=== PATIENT | female | born 1995 | race Caucasian/White ===

== ENCOUNTER 2017-12-25 07:49 | Observation (INO) | payer BC ==
[~2017-12-25] VITALS: Ht 167.6 cm; Wt 96.1 kg
[~2017-12-25 07:49] MED LIST: CRUTCH4 USE; LEVSOD100 PO
[2017-12-25 08:49] LABS: BASOPHILS ABSOLUTE AUTO 0.05 K/mm3 (0.00-0.23); BASOPHILS PERCENT AUTO 0 % (0-2); EOSINOPHILS ABSOLUTE AUTO 0.05 K/mm3 (0.00-0.68); EOSINOPHILS PERCENT AUTO 0 % (0-6); Hematocrit 33.5 % (33.0-51.0); Hemoglobin 11.6 g/dL (11.5-16.0); IMMATURE GRAN ABSOLUTE AUTO 0.07 K/mm3 (0.00-0.10); IMMATURE GRAN PERCENT AUTO 1 % (0-1); LYMPHOCYTES ABSOLUTE AUTO 1.11 K/mm3 (0.84-5.20); LYMPHOCYTES PERCENT AUTO 8 % (21-46); MONOCYTES ABSOLUTE AUTO 0.82 K/mm3 (0.16-1.47); MONOCYTES PERCENT AUTO 6 % (4-13); Mean Corpuscular HGB 29.6 pg (26.0-34.0); Mean Corpuscular HGB Conc 34.6 g/dL (31.5-36.5); Mean Corpuscular Volume 86 fL (80-100); Mean Platelet Volume 10.9 fL (9.1-12.4); NEUTROPHILS ABSOLUTE AUTO 12.23 K/mm3 (1.96-9.15); NEUTROPHILS PERCENT AUTO 86 % (41-73); Platelet Count 208 K/mm3 (150-400); RDW Coefficient Variation 12.3 % (11.7-14.2); RDW Standard Deviation 37.9 fL (35.1-46.3); Red Blood Cell Count 3.92 M/mm3 (3.80-5.20); White Blood Cell Count 14.33 K/mm3 (4.00-11.30)
[2017-12-25 09:09] LABS: Alanine Aminotransfer (ALT/SGP 22 U/L (12-78); Albumin, Blood 2.8 g/dL (3.4-5.0); Albumin/Globulin Ratio 0.7 (0.8-1.8); Alk Phos 82 U/L (50-136); Anion Gap 11 mmol/L (6-16); Aspartate Aminotrans (AST/SGOT 19 U/L (12-37); Bilirubin, Total 0.2 mg/dL (0.1-1.0); Blood Urea Nitrogen 9 mg/dL (8-24); Bun/Creatinine Ratio 10.4 (12.0-20.0); CO2, Blood 22 mmol/L (21-32); Calcium, Blood 8.4 mg/dL (8.5-10.1); Chloride, Blood 103 mmol/L (98-108); Creatinine, Blood 0.87 mg/dL (0.40-1.00); Globulin, Blood 4.1 g/dL (2.2-4.0); Glomerular Filtration Rate >60 (60-); Glucose, Blood 83 mg/dL (70-99); Potassium, Blood 3.9 mmol/L (3.5-5.5); Sodium, Blood 136 mmol/L (136-145); Total Protein, Blood 6.9 g/dL (6.4-8.2)
== END 2017-12-26 10:00 | disposition home or self-care (01) ==
LOC: OBS 07:49 → BC 07:49 → OBS 13:23 → BC 13:24
PROVIDERS: Nurse Practitioner Obstetrics & Gynecology
DX: O26.832 Pregnancy related renal disease, second trimester (principal); N23 Unspecified renal colic; O99.282 Endocrine, nutritional and metabolic diseases complicating pregnancy, second trimester; E03.9 Hypothyroidism, unspecified; Z90.89 Acquired absence of other organs; Z98.890 Other specified postprocedural states; Z88.2 Allergy status to sulfonamides; Z3A.27 27 weeks gestation of pregnancy
CPT/HCPCS: 76770; 80053; 81003; 85025; 96361; 96365; 96366; 96375; G0378; J0696; J2405; J3010; J7120

== ENCOUNTER 2018-03-06 07:12 | Inpatient (IN) | payer BC ==
[~2018-03-06] VITALS: Ht 167.6 cm; Wt 203.0 kg
[2018-03-06 07:39] LABS: BASOPHILS ABSOLUTE AUTO 0.04 K/mm3 (0.00-0.23); BASOPHILS PERCENT AUTO 0 % (0-2); EOSINOPHILS ABSOLUTE AUTO 0.09 K/mm3 (0.00-0.68); EOSINOPHILS PERCENT AUTO 1 % (0-6); Hematocrit 33.1 % (33.0-51.0); Hemoglobin 11.3 g/dL (11.5-16.0); IMMATURE GRAN ABSOLUTE AUTO 0.08 K/mm3 (0.00-0.10); IMMATURE GRAN PERCENT AUTO 1 % (0-1); LYMPHOCYTES ABSOLUTE AUTO 1.63 K/mm3 (0.84-5.20); LYMPHOCYTES PERCENT AUTO 17 % (21-46); MONOCYTES ABSOLUTE AUTO 0.61 K/mm3 (0.16-1.47); MONOCYTES PERCENT AUTO 6 % (4-13); Mean Corpuscular HGB 29.5 pg (26.0-34.0); Mean Corpuscular HGB Conc 34.1 g/dL (31.5-36.5); Mean Corpuscular Volume 86 fL (80-100); Mean Platelet Volume 11.9 fL (9.1-12.4); NEUTROPHILS ABSOLUTE AUTO 7.19 K/mm3 (1.96-9.15); NEUTROPHILS PERCENT AUTO 75 % (41-73); Platelet Count 224 K/mm3 (150-400); RDW Coefficient Variation 12.9 % (11.7-14.2); RDW Standard Deviation 38.5 fL (35.1-46.3); Red Blood Cell Count 3.83 M/mm3 (3.80-5.20); White Blood Cell Count 9.64 K/mm3 (4.00-11.30)
[2018-03-06] MEDS ORDERED: LABE100 PO (07:47)
[2018-03-09 06:31] LABS: BASOPHILS ABSOLUTE AUTO 0.03 K/mm3 (0.00-0.23); BASOPHILS PERCENT AUTO 0 % (0-2); EOSINOPHILS ABSOLUTE AUTO 0.07 K/mm3 (0.00-0.68); EOSINOPHILS PERCENT AUTO 1 % (0-6); Hematocrit 31.6 % (33.0-51.0); Hemoglobin 10.8 g/dL (11.5-16.0); IMMATURE GRAN ABSOLUTE AUTO 0.08 K/mm3 (0.00-0.10); IMMATURE GRAN PERCENT AUTO 1 % (0-1); LYMPHOCYTES ABSOLUTE AUTO 1.37 K/mm3 (0.84-5.20); LYMPHOCYTES PERCENT AUTO 14 % (21-46); MONOCYTES ABSOLUTE AUTO 0.69 K/mm3 (0.16-1.47); MONOCYTES PERCENT AUTO 7 % (4-13); Mean Corpuscular HGB 29.7 pg (26.0-34.0); Mean Corpuscular HGB Conc 34.2 g/dL (31.5-36.5); Mean Corpuscular Volume 87 fL (80-100); Mean Platelet Volume 11.9 fL (9.1-12.4); NEUTROPHILS ABSOLUTE AUTO 7.46 K/mm3 (1.96-9.15); NEUTROPHILS PERCENT AUTO 77 % (41-73); NRBC ABSOLUTE 0.02 K/mm3 (0.00-0.02); NRBC Auto 0.2 /100 WBC (0.0-0.2); Platelet Count 183 K/mm3 (150-400); RDW Standard Deviation 39.7 fL (35.1-46.3); Red Blood Cell Count 3.64 M/mm3 (3.80-5.20)
[2018-03-09 06:58] LABS: Alanine Aminotransfer (ALT/SGP 11 U/L (12-78); Albumin/Globulin Ratio 0.5 (0.8-1.8); Alk Phos 145 U/L (50-136); Anion Gap 9 mmol/L (6-16); Aspartate Aminotrans (AST/SGOT 15 U/L (12-37); Bilirubin, Total 0.3 mg/dL (0.1-1.0); Blood Urea Nitrogen 9 mg/dL (8-24); CO2, Blood 22 mmol/L (21-32); Calcium, Blood 8.8 mg/dL (8.5-10.1); Chloride, Blood 109 mmol/L (98-108); Creatinine, Blood 0.69 mg/dL (0.40-1.00); Globulin, Blood 3.9 g/dL (2.2-4.0); Glomerular Filtration Rate >60 (60-); Glucose, Blood 94 mg/dL (70-99); Potassium, Blood 3.5 mmol/L (3.5-5.5); Sodium, Blood 140 mmol/L (136-145); Total Protein, Blood 5.9 g/dL (6.4-8.2)
[2018-03-09 21:49] LABS: PCO2 Cord - Arterial 52.4 mmHg (40-50); pH Cord - Arterial 7.28 (7.28-7.35)
[2018-03-09 21:50] LABS: PO2 Cord - Arterial < 12 mmHg (16-20)
[2018-03-09 21:51] LABS: PCO2 Cord - Venous 47.7 mmHg (40-50); PO2 Cord - Venous 17.9 mmHg (28-32); pH Umbilical Cord - Venous 7.32 (7.26-7.35)
[2018-03-10 05:35] LABS: Hemoglobin 8.8 g/dL (11.5-16.0); Mean Corpuscular HGB 29.6 pg (26.0-34.0); Mean Corpuscular HGB Conc 33.8 g/dL (31.5-36.5); Mean Corpuscular Volume 88 fL (80-100); Mean Platelet Volume 12.2 fL (9.1-12.4); Platelet Count 148 K/mm3 (150-400); RDW Coefficient Variation 13.2 % (11.7-14.2); RDW Standard Deviation 40.3 fL (35.1-46.3); Red Blood Cell Count 2.97 M/mm3 (3.80-5.20); White Blood Cell Count 10.82 K/mm3 (4.00-11.30)
== END 2018-03-11 18:05 | disposition home or self-care (01) | DRG 766 ==
LOC: BC 07:12
PROVIDERS: Nurse Practitioner Obstetrics & Gynecology; Obstetrics & Gynecology
PROC: 3E0P7VZ Introduction of Hormone into Female Reproductive, Via Natural or Artificial Opening (ICD-10-PCS; 2018-03-07)
PROC: 10907ZC Drainage of Amniotic Fluid, Therapeutic from Products of Conception, Via Natural or Artificial Opening (ICD-10-PCS; 2018-03-09)
PROC: 10D00Z1 Extraction of Products of Conception, Low, Open Approach (ICD-10-PCS; principal; 2018-03-09 20:30)
DX: O14.04 Mild to moderate pre-eclampsia, complicating childbirth (principal); O61.0 Failed medical induction of labor; O62.1 Secondary uterine inertia; O69.81X0 Labor and delivery complicated by cord around neck, without compression, not applicable or unspecified; O34.13 Maternal care for benign tumor of corpus uteri, third trimester; D25.2 Subserosal leiomyoma of uterus; O99.824 Streptococcus B carrier state complicating childbirth; Z37.0 Single live birth; Z3A.37 37 weeks gestation of pregnancy; Z79.899 Other long term (current) drug therapy
CPT/HCPCS: 36415; 51702; 59025; 80053; 82803; 85025; 85027; 86850; 86900; 86901; J0290; J0690; J1885; J2590; J2765; J3010; J7120

== ENCOUNTER 2020-07-09 08:30 | Inpatient (IN) | payer BC, OTHER ==
[~2020-07-09] VITALS: Ht 167.6 cm; Wt 110.7 kg
[~2020-07-09 08:30] MED LIST changes: +LABE100 PO
--- NOTE | 2020-07-09 10:59 | NUR ---
TAKED TO CNM ON PHONE, PT CLEARED FROM SUICIDE INTERVENTION
--- NOTE | 2020-07-09 12:30 | NUR ---
C/S WILL BE ABOUT 1400 PER [facility]W FROM [facility]
[2020-07-09 12:37] LABS: BASOPHILS ABSOLUTE AUTO 0.03 K/mm3 (0.00-0.23); BASOPHILS PERCENT AUTO 0 % (0-2); EOSINOPHILS ABSOLUTE AUTO 0.04 K/mm3 (0.00-0.68); EOSINOPHILS PERCENT AUTO 1 % (0-6); Hematocrit 33.5 % (33.0-51.0); Hemoglobin 10.4 g/dL (11.5-16.0); IMMATURE GRAN ABSOLUTE AUTO 0.05 K/mm3 (0.00-0.10); IMMATURE GRAN PERCENT AUTO 1 % (0-1); LYMPHOCYTES ABSOLUTE AUTO 1.36 K/mm3 (0.84-5.20); LYMPHOCYTES PERCENT AUTO 17 % (21-46); MONOCYTES ABSOLUTE AUTO 0.57 K/mm3 (0.16-1.47); MONOCYTES PERCENT AUTO 7 % (4-13); Mean Corpuscular HGB 24.6 pg (26.0-34.0); Mean Corpuscular Volume 79 fL (80-100); NEUTROPHILS PERCENT AUTO 75 % (41-73); Platelet Count 196 K/mm3 (150-400); RDW Coefficient Variation 14.8 % (11.7-14.2); RDW Standard Deviation 42.3 fL (35.1-46.3); Red Blood Cell Count 4.23 M/mm3 (3.80-5.20); White Blood Cell Count 8.15 K/mm3 (4.00-11.30)
[2020-07-09 12:46] LABS: Mean Platelet Volume 13.4 fL (9.1-12.4)
--- NOTE | 2020-07-09 16:03 | NUR ---
07/09/20 1603 Neha Car BABY A; DELIVERY TIME 1534, WEIGHT 3065 GM 6# 12 OX, HEAD 13.5 INCHES, CHEST 12.75 INCHES, CHEST 20 INCHES, APGARS 9/9, UMBILICAL CORD SEGMENT SENT WITH RT FOR CORD GASES, UMBILICAL CORD BLOOD COLLECTED AND GIVEN TO RN FOR TYPE AND RH. BABY B; DELIVERY 1535, WEIGHT 3065GM 6# 12OZ, HEAD 13 INCHES, CHEST 13 INCHES, LENGTH 19 INCHES, APGARS 9/9, UMBILICAL CORD SEGMENT SENT WITH RT FOR CORD GASES, UMBILICAL CORD BLOOD COLLECTED AND GIVEN TO RN FOR TYPE AND RH. PLACENTA COLLECTED SENT TO PATHOLOGY, NOTE UMBILICAL CORD WITH 2 CLAMPS IS BABY B.
[2020-07-09 16:06] LABS: PCO2 Cord - Arterial 46.7 mmHg (40-50); pH Cord - Arterial 7.26 (7.28-7.35)
[2020-07-09 16:07] LABS: PCO2 Cord - Venous 36.8 mmHg (40-50); PO2 Cord - Arterial < 13 mmHg (16-20); PO2 Cord - Venous 13.2 mmHg (28-32)
[2020-07-09 16:12] LABS: PCO2 Cord - Arterial 44.2 mmHg (40-50); PO2 Cord - Arterial < 13 mmHg (16-20)
[2020-07-09 16:13] LABS: PCO2 Cord - Venous 37.5 mmHg (40-50); PO2 Cord - Venous 16.8 mmHg (28-32); pH Umbilical Cord - Venous 7.35 (7.26-7.35)
[2020-07-10 05:54] LABS: BASOPHILS ABSOLUTE AUTO 0.03 K/mm3 (0.00-0.23); BASOPHILS PERCENT AUTO 0 % (0-2); EOSINOPHILS ABSOLUTE AUTO 0.03 K/mm3 (0.00-0.68); EOSINOPHILS PERCENT AUTO 0 % (0-6); Hematocrit 28.8 % (33.0-51.0); IMMATURE GRAN ABSOLUTE AUTO 0.04 K/mm3 (0.00-0.10); IMMATURE GRAN PERCENT AUTO 1 % (0-1); LYMPHOCYTES ABSOLUTE AUTO 1.34 K/mm3 (0.84-5.20); LYMPHOCYTES PERCENT AUTO 16 % (21-46); MONOCYTES ABSOLUTE AUTO 0.62 K/mm3 (0.16-1.47); MONOCYTES PERCENT AUTO 7 % (4-13); Mean Corpuscular HGB 25.1 pg (26.0-34.0); Mean Corpuscular HGB Conc 31.3 g/dL (31.5-36.5); Mean Corpuscular Volume 80 fL (80-100); Mean Platelet Volume 11.7 fL (9.1-12.4); NEUTROPHILS ABSOLUTE AUTO 6.29 K/mm3 (1.96-9.15); NEUTROPHILS PERCENT AUTO 75 % (41-73); Platelet Count 147 K/mm3 (150-400); RDW Coefficient Variation 14.9 % (11.7-14.2); RDW Standard Deviation 43.3 fL (35.1-46.3); Red Blood Cell Count 3.58 M/mm3 (3.80-5.20); White Blood Cell Count 8.35 K/mm3 (4.00-11.30)
--- NOTE | 2020-07-10 11:55 | NUR ---
SITTING IN ROCKING CHAIR, WAS ABLE TO VOID ABOUT 1045, CURRENTLY BABY GIRL, REPORTS WAS ABLE TO SLEEP A LITTLE. LG IS IN WITH PT NOW
--- NOTE | 2020-07-10 12:54 | NUR ---
ASSIST BABY NURSING ON R BREAST. EDUCATION ON FEEING TWINS GIVEN. I DEMONSTRATED WAKING AND SPOON FEEDING EBM TO ASSIST BABY TO WAKE AND GET MORE INTRESTED IN BREASTFEEEDIN. SECOND BABY WOKE AND EASILY LATCHED TO SECOND BREAST. ENCOURAGED TRYING TO FEEDING BOTH BABIES AT THE SAME TIME SO MOM CAN REST MORE FREQ. AFTER MILK COMES IN IF MOM FEELS SHE DOES NOT HAVE ADAQUATE SUPPLY TO START PUMPING 10-15 MINUTES AFTER EACH FEEDING. DEUCATION RESOURCES SITE GIVEN. QUESTIONS COVERED.
--- NOTE | 2020-07-11 08:45 | NUR ---
PT SITTING UP IN CHAIR BRF BOTH NB'S. MEDICATING PER E-MAR. PT DOING WELL, AT SIDE, SUPPORTIVE. PLANNING TO DC HOME TODAY.
--- NOTE | 2020-07-11 12:30 | NUR ---
BANDS MATCHED, MOM DC HOME WITH NB'S AND .
--- NOTE | 2020-07-11 16:25 | NUR ---
RN ROUNDED TO HELP W/ . EXPERIENCED MOM. MULTIPLE . INSTRUCTED PT TO LATCH EASIER TWIN FIRST AND STABALIZE, THEN LATCH SECOND TWIN. THIS WILL ALLOW FOR A FASTER LET DOWN FOR TWIN THAT IS NOT WANTING TO LATCH AND FEED EFFECTIVELY. FURTHER SUPPORT OFFERED IN THE [facility] IF PT DESIRES. INSTRUCTED PT ON CORRECT POSITIONING AND LATCHING, NIPPLE SHAPE AFTER FEEDS, FREQUENCY OF FEEDS AND SUPPLY/DEMAND OF BREASTMILK. MOM LOVING W/ TWINS, DENIES ANY FURTHER QUESTIONS OR CONCERNS.
== END 2020-07-11 12:45 | disposition home or self-care (01) | DRG 788 ==
LOC: SURS 08:30 → BC 10:39
PROVIDERS: Nurse Practitioner Obstetrics & Gynecology; ADMIT Obstetrics & Gynecology
PROC: 10D00Z1 Extraction of Products of Conception, Low, Open Approach (ICD-10-PCS; principal; 2020-07-09 13:15)
PROC: 3E0234Z Introduction of Serum, Toxoid and Vaccine into Muscle, Percutaneous Approach (ICD-10-PCS; 2020-07-11)
DX: O14.14 Severe pre-eclampsia complicating childbirth (principal); O99.02 Anemia complicating childbirth; D64.9 Anemia, unspecified; Z3A.37 37 weeks gestation of pregnancy; Z37.2 Twins, both liveborn; O34.211 Maternal care for low transverse scar from previous cesarean delivery; Z23 Encounter for immunization; O99.214 Obesity complicating childbirth; E66.9 Obesity, unspecified
CPT/HCPCS: 36415; 82803; 85025; 86850; 86900; 86901; 90471; A9270; J0690; J1885; J2270; J2590; J2765; J7120; Q2038

== ENCOUNTER 2020-07-14 23:19 | Emergency (ER) | payer BC, OTHER ==
[~2020-07-14] VITALS: Ht 167.6 cm; Wt 102.9 kg
[2020-07-15 00:47] LABS: BASOPHILS ABSOLUTE AUTO 0.02 K/mm3 (0.00-0.23); BASOPHILS PERCENT AUTO 0 % (0-2); EOSINOPHILS ABSOLUTE AUTO 0.18 K/mm3 (0.00-0.68); EOSINOPHILS PERCENT AUTO 3 % (0-6); Hematocrit 29.6 % (33.0-51.0); Hemoglobin 9.1 g/dL (11.5-16.0); IMMATURE GRAN ABSOLUTE AUTO 0.01 K/mm3 (0.00-0.10); IMMATURE GRAN PERCENT AUTO 0 % (0-1); LYMPHOCYTES ABSOLUTE AUTO 1.43 K/mm3 (0.84-5.20); LYMPHOCYTES PERCENT AUTO 22 % (21-46); MONOCYTES ABSOLUTE AUTO 0.43 K/mm3 (0.16-1.47); MONOCYTES PERCENT AUTO 7 % (4-13); Mean Corpuscular HGB 24.9 pg (26.0-34.0); Mean Corpuscular HGB Conc 30.7 g/dL (31.5-36.5); Mean Corpuscular Volume 81 fL (80-100); Mean Platelet Volume 10.5 fL (9.1-12.4); NEUTROPHILS ABSOLUTE AUTO 4.47 K/mm3 (1.96-9.15); NEUTROPHILS PERCENT AUTO 68 % (41-73); Platelet Count 202 K/mm3 (150-400); RDW Coefficient Variation 14.8 % (11.7-14.2); RDW Standard Deviation 43.6 fL (35.1-46.3); Red Blood Cell Count 3.65 M/mm3 (3.80-5.20); White Blood Cell Count 6.54 K/mm3 (4.00-11.30)
[2020-07-15 00:59] LABS: Lactate Dehydrogenase (Ld),Bld 239 U/L (100-240); Magnesium, Blood 1.5 mg/dL (1.6-2.4); Uric Acid, Blood 6.3 mg/dL (2.6-6.0)
[2020-07-15 01:00] LABS: Alanine Aminotransfer (ALT/SGP 32 U/L (12-78); Albumin, Blood 2.5 g/dL (3.4-5.0); Albumin/Globulin Ratio 0.7 (0.8-1.8); Alk Phos 117 U/L (50-136); Anion Gap 9 mmol/L (6-16); Aspartate Aminotrans (AST/SGOT 32 U/L (12-37); Bilirubin, Total 0.2 mg/dL (0.1-1.0); Blood Urea Nitrogen 17 mg/dL (8-24); Bun/Creatinine Ratio 22.4 (12.0-20.0); CO2, Blood 23 mmol/L (21-32); Calcium, Blood 8.4 mg/dL (8.5-10.1); Chloride, Blood 111 mmol/L (98-108); Creatinine, Blood 0.76 mg/dL (0.40-1.00); Globulin, Blood 3.8 g/dL (2.2-4.0); Glomerular Filtration Rate >60 (60-); Glucose, Blood 89 mg/dL (70-99); Potassium, Blood 3.7 mmol/L (3.5-5.5); Sodium, Blood 143 mmol/L (136-145); Total Protein, Blood 6.3 g/dL (6.4-8.2)
[2020-07-15 01:03] LABS: Source, Urine Clean Catch
[2020-07-15 01:07] LABS: Bilirubin, Urine Neg (Neg); Blood, Urine 1+ (Neg); Glucose Qualitative, Urine Neg (Neg); Ketones, Urine Neg (Neg); Leukocyte Esterase, Urine Neg (Neg); Nitrite, Urine Neg (Neg); Protein, Urine Neg (Neg); Urobilinogen, Urine NORM (Normal)
[2020-07-15 01:09] LABS: Appearance, Urine Clear (Clear); Color, Urine Yellow (P-Yellow)
[2020-07-15 01:13] LABS: Bacteria Few /hpf; Squamous Epithelial Cells Not Seen /hpf (Few); White Blood Cells, Urine 0-2 /hpf (0-5)
== END 2020-07-15 02:19 | disposition home or self-care (01) ==
LOC: ER 23:19
PROVIDERS: Emergency Medicine
DX: O90.89 Other complications of the puerperium, not elsewhere classified (principal); R03.0 Elevated blood-pressure reading, without diagnosis of hypertension; O99.285 Endocrine, nutritional and metabolic diseases complicating the puerperium; E03.9 Hypothyroidism, unspecified; Z37.2 Twins, both liveborn; Z88.2 Allergy status to sulfonamides; Z87.59 Personal history of other complications of pregnancy, childbirth and the puerperium; Z79.899 Other long term (current) drug therapy
CPT/HCPCS: 36415; 80053; 81001; 83615; 83735; 84550; 85025; 96365; 99283-25; J3475

== ENCOUNTER 2022-03-09 09:33 | Inpatient (IN) | payer BC, OTHER ==
[~2022-03-09] VITALS: Ht 167.6 cm; Wt 105.9 kg
[2022-03-09 10:09] LABS: BASOPHILS ABSOLUTE AUTO 0.03 K/mm3 (0.00-0.23); BASOPHILS PERCENT AUTO 0 % (0-2); EOSINOPHILS ABSOLUTE AUTO 0.04 K/mm3 (0.00-0.68); EOSINOPHILS PERCENT AUTO 1 % (0-6); Hematocrit 34.3 % (33.0-51.0); Hemoglobin 11.5 g/dL (11.5-16.0); IMMATURE GRAN ABSOLUTE AUTO 0.03 K/mm3 (0.00-0.10); IMMATURE GRAN PERCENT AUTO 0 % (0-1); LYMPHOCYTES ABSOLUTE AUTO 1.46 K/mm3 (0.84-5.20); LYMPHOCYTES PERCENT AUTO 19 % (21-46); MONOCYTES ABSOLUTE AUTO 0.47 K/mm3 (0.16-1.47); MONOCYTES PERCENT AUTO 6 % (4-13); Mean Corpuscular HGB 28.1 pg (26.0-34.0); Mean Corpuscular HGB Conc 33.5 g/dL (31.5-36.5); Mean Corpuscular Volume 84 fL (80-100); Mean Platelet Volume 11.6 fL (9.1-12.4); NEUTROPHILS ABSOLUTE AUTO 5.82 K/mm3 (1.96-9.15); NEUTROPHILS PERCENT AUTO 74 % (41-73); Platelet Count 193 K/mm3 (150-400); RDW Coefficient Variation 13.6 % (11.7-14.2); RDW Standard Deviation 41.1 fL (35.1-46.3); Red Blood Cell Count 4.09 M/mm3 (3.80-5.20); White Blood Cell Count 7.85 K/mm3 (4.00-11.30)
--- NOTE | 2022-03-09 13:00 | NUR ---
PT HERE FOR RCS, FHT 160'S BABY ACTIVE
--- NOTE | 2022-03-09 14:29 | NUR ---
03/09/22 1429 Anabell Handy VIABLE CRYING MALE BORN AT 1418 WEIGHING 7-5 (3330) APGARS 9/9. CORD GASES GIVEN TO GINA THRASHER AND CORD BLOOD GIVEN TO EMILY GARCIA.
[2022-03-09 14:33] LABS: PCO2 Cord - Arterial 55.1 mmHg (40-50); pH Cord - Arterial 7.28 (7.28-7.35)
[2022-03-09 14:34] LABS: PO2 Cord - Arterial < 14 mmHg (16-20)
[2022-03-09 14:35] LABS: PCO2 Cord - Venous 46.6 mmHg (40-50); PO2 Cord - Venous 17.7 mmHg (28-32); pH Umbilical Cord - Venous 7.33 (7.26-7.35)
[2022-03-10 07:29] LABS: BASOPHILS ABSOLUTE AUTO 0.03 K/mm3 (0.00-0.23); BASOPHILS PERCENT AUTO 0 % (0-2); EOSINOPHILS ABSOLUTE AUTO 0.04 K/mm3 (0.00-0.68); EOSINOPHILS PERCENT AUTO 1 % (0-6); Hematocrit 28.7 % (33.0-51.0); Hemoglobin 9.5 g/dL (11.5-16.0); IMMATURE GRAN ABSOLUTE AUTO 0.03 K/mm3 (0.00-0.10); IMMATURE GRAN PERCENT AUTO 0 % (0-1); LYMPHOCYTES ABSOLUTE AUTO 1.21 K/mm3 (0.84-5.20); LYMPHOCYTES PERCENT AUTO 17 % (21-46); MONOCYTES ABSOLUTE AUTO 0.47 K/mm3 (0.16-1.47); MONOCYTES PERCENT AUTO 7 % (4-13); Mean Corpuscular HGB 28.3 pg (26.0-34.0); Mean Corpuscular HGB Conc 33.1 g/dL (31.5-36.5); Mean Corpuscular Volume 85 fL (80-100); Mean Platelet Volume 11.2 fL (9.1-12.4); NEUTROPHILS ABSOLUTE AUTO 5.45 K/mm3 (1.96-9.15); NEUTROPHILS PERCENT AUTO 75 % (41-73); Platelet Count 145 K/mm3 (150-400); RDW Standard Deviation 42.8 fL (35.1-46.3); Red Blood Cell Count 3.36 M/mm3 (3.80-5.20); White Blood Cell Count 7.23 K/mm3 (4.00-11.30)
--- NOTE | 2022-03-10 18:42 | NUR ---
patient to [facility]
--- NOTE | 2022-03-10 18:43 | NUR ---
disregard to baorder status, wrote on wrong patient
[2022-03-11] MEDS ORDERED: Percocet 5-3251 EACH PO (00:16)
[2022-03-11] MEDS ORDERED: IBUP800 PO (00:16)
--- NOTE | 2022-03-11 09:55 | NUR ---
Printed d/c instructions reviewed w/pt. Questions answered to her satisfaction.
--- NOTE | 2022-03-11 12:50 | NUR ---
No acute changes this shift. Pt denies additional needs/questions/concerns. ID bands matched w/nb. Pt d/c'd home ambulatory to care of .
== END 2022-03-11 13:05 | disposition home or self-care (01) | DRG 788 ==
LOC: BC 09:33
PROVIDERS: ADMIT Obstetrics & Gynecology
PROC: 10D00Z1 Extraction of Products of Conception, Low, Open Approach (ICD-10-PCS; principal; 2022-03-09 13:30)
DX: O34.211 Maternal care for low transverse scar from previous cesarean delivery (principal); Z3A.39 39 weeks gestation of pregnancy; Z37.0 Single live birth; O99.284 Endocrine, nutritional and metabolic diseases complicating childbirth; E03.9 Hypothyroidism, unspecified; Z98.890 Other specified postprocedural states; Z79.899 Other long term (current) drug therapy
CPT/HCPCS: 36415; 82803; 85025; 86850; 86900; 86901; A9270; J0690; J1885; J2590; J2765; J3010; J7120

== ENCOUNTER 2024-09-18 13:11 | Inpatient (IN) | payer OTHER ==
[~2024-09-18] VITALS: Ht 167.6 cm; Wt 109.0 kg
[2024-09-18] VITALS (19 sets, daily range): BP systolic 116–132; BP diastolic 64–86
[~2024-09-18 13:11] MED LIST changes: +IBUP800 PO; +Methylergonovine Maleate 0.2MG / ML 1ML Amp IV ONE; +Percocet 5-3251 EACH PO
[2024-09-18] MEDS ORDERED: Metoclopramide HCl 5MG / ML 2ML Vial IV SCH (13:50)
[2024-09-18] MEDS ORDERED: Citric Acid/Sodium Citrate 30 ML BTL PO SCH (13:50)
[2024-09-18] MEDS ORDERED: CeFAZolin Sodium 2,000 MG in NS 100 ML IV SCH ×2 (13:50→23:15)
[2024-09-18] MEDS ORDERED: Lactated Ringer's 1,000 ML IV SCH ×3 (13:50→16:55)
[2024-09-18] MEDS ORDERED: Lactated Ringer's 1,000 ML IV ONE (13:57)
[2024-09-18 14:23] LABS: BASOPHILS ABSOLUTE AUTO 0.01 K/mm3 (0.00-0.23); BASOPHILS PERCENT AUTO 0 % (0-2); EOSINOPHILS PERCENT AUTO 0 % (0-6); Hematocrit 29.7 % (33.0-51.0); Hemoglobin 9.7 g/dL (11.5-16.0); IMMATURE GRAN ABSOLUTE AUTO 0.04 K/mm3 (0.00-0.10); IMMATURE GRAN PERCENT AUTO 1 % (0-1); LYMPHOCYTES ABSOLUTE AUTO 1.23 K/mm3 (0.84-5.20); LYMPHOCYTES PERCENT AUTO 19 % (21-46); MONOCYTES ABSOLUTE AUTO 0.37 K/mm3 (0.16-1.47); MONOCYTES PERCENT AUTO 6 % (4-13); Mean Corpuscular HGB 26.4 pg (26.0-34.0); Mean Corpuscular HGB Conc 32.7 g/dL (31.5-36.5); Mean Corpuscular Volume 81 fL (80-100); Mean Platelet Volume 11.2 fL (9.1-12.4); NEUTROPHILS ABSOLUTE AUTO 4.92 K/mm3 (1.96-9.15); NEUTROPHILS PERCENT AUTO 75 % (41-73); Platelet Count 185 K/mm3 (150-400); RDW Coefficient Variation 14.2 % (11.7-14.2); RDW Standard Deviation 41.5 fL (35.1-46.3); Red Blood Cell Count 3.67 M/mm3 (3.80-5.20); White Blood Cell Count 6.57 K/mm3 (4.00-11.30)
[2024-09-18] MEDS ORDERED: LEVOTHYROXINE175 MC9 PO (14:31)
[2024-09-18] MEDS ORDERED: ePHEDrine Sulfate 50 MG/ML 1ML Injection ONE (15:30)
[2024-09-18] MEDS ORDERED: Phenylephrine HCl 100 MCG/ML-NS 10MLSYR (1MG/10ML) ONE (15:31)
[2024-09-18] MEDS ORDERED: Oxytocin 10 Unit / ML Vial ONE (15:31)
--- NOTE | 2024-09-18 16:00 | NUR ---
09/18/24 1600 Anabell Handy VIABLE MALE BORN AT 1543 WITH SPONTANEOUS CRY. APGARS 9/9. CORD BLOOD GIVEN TO EMILY GARCIA AND CORD GASES GAVE TO GINA THRASHER. WEIGHT 3030 6-11. SEE LABOR AND DELIVERY SUMMARY. BILATERAL SALPINECTOMY DONE AND RIGHT AND LEFT FALLOPIAN TUBES SENT TO PATHOLOGY. METHERGINE 0.2 IV GIVEN BY KELLIE.
[2024-09-18 16:06] LABS: PCO2 Cord - Arterial 55.4 mmHg (40-50); PO2 Cord - Arterial < 14.0 mmHg (16-20); pH Cord - Arterial 7.27 (7.28-7.35)
[2024-09-18 16:13] LABS: PCO2 Cord - Venous 48.6 mmHg (40-50); PO2 Cord - Venous 14.3 mmHg (28-32); pH Umbilical Cord - Venous 7.32 (7.26-7.35)
[2024-09-18] MEDS ORDERED: HYDROmorphone HCl/Pf 1MG SYR IV PRN ×2 (16:15→16:20)
[2024-09-18] MEDS ORDERED: Ondansetron HCl 2 MG / ML 2ML Vial IV PRN ×2 (16:20→17:05)
[2024-09-18] MEDS ORDERED: Albuterol 2.5 MG/3 ML VIAL INH PRN (16:20)
[2024-09-18] MEDS ORDERED: FentaNYL Citrate 50 MCG/ML 2 ML Injection IV PRN (16:20)
[2024-09-18] MEDS ORDERED: Meperidine HCl 50 MG/ML 1ML Injection IV PRN (16:35)
[2024-09-18] MEDS ORDERED: Ketorolac Tromethamine 15mg Vial IV PRN (16:35)
[2024-09-18] MEDS ORDERED: Magnesium Hydroxide Conc 10 ML UDC PO PRN (16:55)
[2024-09-18] MEDS ORDERED: Methylergonovine Maleate 0.2MG / ML 1ML Amp IM PRN (16:55)
[2024-09-18] MEDS ORDERED: OxyCODONE 5 mg/Acetamin 325 mg TABLET PO PRN (17:00)
[2024-09-18] MEDS ORDERED: Promethazine HCl 25 MG Tab PO PRN (17:00)
[2024-09-18] MEDS ORDERED: Lanolin Cream TOP PRN (17:00)
[2024-09-18] MEDS ORDERED: Misoprostol 200 MCG Tab PR PRN (17:00)
[2024-09-18] MEDS ORDERED: Promethazine HCl 25 MG Supp PR PRN (17:00)
[2024-09-18] MEDS ORDERED: Morphine Sulfate 4 MG/1 ML Injection IV PRN (17:00)
[2024-09-18] MEDS ORDERED: Naproxen 500 MG Tab PO PRN (17:00)
[2024-09-18] MEDS ORDERED: Acetaminophen 500 MG Tab PO PRN (17:05)
[2024-09-18] MEDS ORDERED: Promethazine HCl 12.5 MG Supp PR PRN (17:05)
[2024-09-18] MEDS ORDERED: Simethicone 80 MG Chew PO PRN (17:05)
[2024-09-18] MEDS ORDERED: OXYTOCIN/RINGER'S LACTATE 500 ML IV SCH (17:05)
[2024-09-18] MEDS ORDERED: Tranexamic Acid 100 ML IV PRN (17:55)
[2024-09-18] MEDS ORDERED: Ketorolac Tromethamine 30mg Vial IV SCH (18:00)
[2024-09-18] MEDS ORDERED: Docusate Sodium 100 MG Cap PO SCH (21:00)
[2024-09-19 05:00] VITALS: BP 109/59
[2024-09-19] MEDS ORDERED: Levothyroxine Sodium 0.175 MG TAB PO SCH (06:00)
[2024-09-19 06:43] LABS: BASOPHILS PERCENT AUTO 0 % (0-2); EOSINOPHILS ABSOLUTE AUTO 0.01 K/mm3 (0.00-0.68); EOSINOPHILS PERCENT AUTO 0 % (0-6); Hematocrit 26.7 % (33.0-51.0); Hemoglobin 8.9 g/dL (11.5-16.0); IMMATURE GRAN ABSOLUTE AUTO 0.03 K/mm3 (0.00-0.10); IMMATURE GRAN PERCENT AUTO 0 % (0-1); LYMPHOCYTES ABSOLUTE AUTO 1.31 K/mm3 (0.84-5.20); LYMPHOCYTES PERCENT AUTO 18 % (21-46); MONOCYTES ABSOLUTE AUTO 0.51 K/mm3 (0.16-1.47); MONOCYTES PERCENT AUTO 7 % (4-13); Mean Corpuscular HGB 27.1 pg (26.0-34.0); Mean Corpuscular HGB Conc 33.3 g/dL (31.5-36.5); Mean Corpuscular Volume 81 fL (80-100); Mean Platelet Volume 11.1 fL (9.1-12.4); NEUTROPHILS ABSOLUTE AUTO 5.64 K/mm3 (1.96-9.15); NEUTROPHILS PERCENT AUTO 75 % (41-73); Platelet Count 174 K/mm3 (150-400); RDW Coefficient Variation 14.5 % (11.7-14.2); RDW Standard Deviation 41.8 fL (35.1-46.3); Red Blood Cell Count 3.28 M/mm3 (3.80-5.20)
[2024-09-19 07:59] VITALS: BP 98/53
[2024-09-19] MEDS ORDERED: Prenatal Vit/FE Fumarate/FA 1 Tab PO SCH (09:00)
[2024-09-19 12:25] VITALS: BP 107/64
[2024-09-19 21:24] VITALS: BP 123/68
[2024-09-20 00:36] VITALS: BP 123/75
[2024-09-20 06:05] VITALS: BP 112/58
[2024-09-20 08:35] VITALS: BP 119/65
[2024-09-20] MEDS ORDERED: PRENATAL TABLE1 EAC2 PO (09:20)
[2024-09-20 12:18] VITALS: BP 121/59
[2024-09-20 16:17] VITALS: BP 125/80
[2024-09-20 19:55] VITALS: BP 125/60
[2024-09-20] MEDS ORDERED: Magnesium Hydroxide Conc 10 ML UDC PO SCH (21:00)
[2024-09-21 00:55] VITALS: BP 126/92
[2024-09-21 04:44] VITALS: BP 115/64
[2024-09-21 08:34] VITALS: BP 122/65
[2024-09-21 10:16] VITALS: BP 133/85
== END 2024-09-21 10:50 | disposition home or self-care (01) | DRG 785 ==
LOC: BC 13:11
PROVIDERS: ADMIT Obstetrics & Gynecology
PROC: 10D00Z1 Extraction of Products of Conception, Low, Open Approach (ICD-10-PCS; principal; 2024-09-18 15:00)
PROC: 0UB70ZZ Excision of Bilateral Fallopian Tubes, Open Approach (ICD-10-PCS; 2024-09-18 15:00)
DX: O34.211 Maternal care for low transverse scar from previous cesarean delivery (principal); Z30.2 Encounter for sterilization; Z3A.37 37 weeks gestation of pregnancy; Z37.0 Single live birth; O99.284 Endocrine, nutritional and metabolic diseases complicating childbirth; E03.9 Hypothyroidism, unspecified; Z79.890 Hormone replacement therapy; Z88.2 Allergy status to sulfonamides; O90.81 Anemia of the puerperium; Z79.82 Long term (current) use of aspirin; F90.9 Attention-deficit hyperactivity disorder, unspecified type; O99.344 Other mental disorders complicating childbirth
CPT/HCPCS: 36415; 82803; 85025; 86850; 86900; 86901; 86923; 88302; A9270; J0690; J1885; J2210; J2371; J2590; J2765; J7120